=== PATIENT | male | born 1945 | race Caucasian/White ===

== ENCOUNTER → 2018-06-25 | Outpatient (CLI) | payer MEDICARE, BC ==
[~2018-06-25] MED LIST: ALEVE220 MG PO; AMOX500 PO; ANTI-FUNGAL CR113 GM TOP; ASPI81EC PO; Advair Hfa 230-12 GM; FISH1000 PO; FLUT.05NI; GLUCHON PO; LISI5 PO; Levitra20 MG PO; MECL25 PO; MULVITMINF PO; NAPR220 PO; Sudogest60 MG PO
== END ==
LOC: LAB EV 12:58 → LAB SHORT 12:58
DX: L08.9 Local infection of the skin and subcutaneous tissue, unspecified (principal)
CPT/HCPCS: 87070; 87075; 87205

== ENCOUNTER → 2020-10-11 | Outpatient (CLI) | payer MEDICARE, BC ==
[~2020-10-11] MED LIST changes: -ASPI81EC PO; +Amiodarone HCl200 MG PO; +Aspirin EC81 MG PO; +ELIQUIS5 MG PO; +FURO20 PO; +IBUP800; +LANOXIN125 MCG PO; +Levitra20 MG; +METOPROLOL SUCC25 MG PO; +MULTI VITAMIN1 EACH PO; -MULVITMINF PO; +OMEGA-3 FISH O1 EAC6 PO; +PRINIVIL10 MG PO; +PULMICORT0.5 MG/21 INH; +ROSU5 PO
[2020-10-11 15:58] LABS: BASOPHILS ABSOLUTE AUTO 0.05 K/mm3 (0.00-0.23); BASOPHILS PERCENT AUTO 1 % (0-2); EOSINOPHILS PERCENT AUTO 5 % (0-6); Hematocrit 42.2 % (37.0-53.0); Hemoglobin 13.4 g/dL (13.5-17.5); IMMATURE GRAN ABSOLUTE AUTO 0.02 K/mm3 (0.00-0.10); IMMATURE GRAN PERCENT AUTO 0 % (0-1); LYMPHOCYTES ABSOLUTE AUTO 1.63 K/mm3 (0.84-5.20); LYMPHOCYTES PERCENT AUTO 25 % (21-46); MONOCYTES ABSOLUTE AUTO 0.42 K/mm3 (0.16-1.47); MONOCYTES PERCENT AUTO 6 % (4-13); Mean Corpuscular HGB 28.2 pg (26.0-34.0); Mean Corpuscular HGB Conc 31.8 g/dL (31.5-36.5); Mean Corpuscular Volume 89 fL (80-100); Mean Platelet Volume 10.7 fL (9.1-12.4); NEUTROPHILS ABSOLUTE AUTO 4.24 K/mm3 (1.96-9.15); NEUTROPHILS PERCENT AUTO 64 % (41-73); Platelet Count 268 K/mm3 (150-400); RDW Coefficient Variation 16.4 % (11.7-14.2); RDW Standard Deviation 53.6 fL (35.1-46.3); Red Blood Cell Count 4.75 M/mm3 (4.30-5.90); White Blood Cell Count 6.66 K/mm3 (4.00-11.30)
[2020-10-11 16:52] LABS: Alanine Aminotransfer (ALT/SGP 35 U/L (12-78); Albumin, Blood 3.8 g/dL (3.4-5.0); Albumin/Globulin Ratio 1.1 (0.8-1.8); Alk Phos 83 U/L (50-136); Anion Gap 9 mmol/L (6-16); Aspartate Aminotrans (AST/SGOT 23 U/L (12-37); Bilirubin, Total 0.5 mg/dL (0.1-1.0); Blood Urea Nitrogen 23 mg/dL (8-24); Bun/Creatinine Ratio 26.8 (12.0-20.0); CHOL/HDL RATIO 2.5; CO2, Blood 22 mmol/L (21-32); Calcium, Blood 8.8 mg/dL (8.5-10.1); Chloride, Blood 109 mmol/L (98-108); Cholesterol 138 mg/dL (50-200); Creatinine, Blood 0.86 mg/dL (0.60-1.20); Globulin, Blood 3.4 g/dL (2.2-4.0); Glomerular Filtration Rate >60 (60-); Glucose, Blood 113 mg/dL (70-99); HDL Cholesterol 55 mg/dL (>39); LDL/HDL RATIO 1.2; Low Density Lipoprotein Chol 66 mg/dL (0-110); Potassium, Blood 4.3 mmol/L (3.5-5.5); Sodium, Blood 140 mmol/L (136-145); Total Protein, Blood 7.2 g/dL (6.4-8.2); Triglycerides 86 mg/dL (30-160); Very Low Density Lipoprot Chol 17 mg/dL (6-32)
== END | disposition home or self-care (01) ==
LOC: LAB SHORT 14:11
PROVIDERS: Family Medicine
DX: Z12.5 Encounter for screening for malignant neoplasm of prostate (principal); I10 Essential (primary) hypertension; E78.2 Mixed hyperlipidemia
CPT/HCPCS: 80053; 80061; 85025; G0103

== ENCOUNTER 2020-12-04 06:19 | Day surgery (SDC) | payer MEDICARE, BC ==
[~2020-12-04] VITALS: Ht 190.5 cm; Wt 146.0 kg
[~2020-12-04 06:19] MED LIST changes: -FURO20 PO
[2020-12-04] MEDS ORDERED: FURO20 PO (07:08)
--- NOTE | 2020-12-04 10:44 | NUR ---
12/04/20 1044 Sonia Brown THE PT IS RESTING COMFORABLY IN SDU, HIS VVS, HE IS EATING AND DRINKING FLUIDS. HE IS READY TO GO OVER DISCHARGE INSTRUCTIONS AND HIS HAS BEEN CALLED FOR HEEL SHAPER.
== END 2020-12-04 11:02 | disposition home or self-care (01) ==
LOC: ORSCSDS 06:19
PROVIDERS: Otolaryngology
PROC: 8E09XBZ Computer Assisted Procedure of Head and Neck Region (ICD-10-PCS; principal; 2020-12-04 07:30)
PROC: 09TV4ZZ Resection of Left Ethmoid Sinus, Percutaneous Endoscopic Approach (ICD-10-PCS; principal; 2020-12-04 07:30)
PROC: 09TU4ZZ Resection of Right Ethmoid Sinus, Percutaneous Endoscopic Approach (ICD-10-PCS; principal; 2020-12-04 07:30)
DX: J32.4 Chronic pansinusitis (principal); I10 Essential (primary) hypertension; I25.10 Atherosclerotic heart disease of native coronary artery without angina pectoris; Z87.891 Personal history of nicotine dependence; E66.01 Morbid (severe) obesity due to excess calories; Z68.41 Body mass index [BMI] 40.0-44.9, adult; Z79.01 Long term (current) use of anticoagulants; Z79.899 Other long term (current) drug therapy; Z79.82 Long term (current) use of aspirin
CPT/HCPCS: C2625; J0171; J0330; J1100; J2250; J2405; J2704; J3010; J7120

== ENCOUNTER 2021-11-12 11:32 | Emergency (ER) | payer MEDICARE, BC ==
[~2021-11-12] VITALS: Ht 190.5 cm; Wt 140.6 kg
[~2021-11-12 11:32] MED LIST changes: +FURO20 PO
[2021-11-12 12:57] LABS: BASOPHILS ABSOLUTE AUTO 0.03 K/mm3 (0.00-0.23); BASOPHILS PERCENT AUTO 0 % (0-2); EOSINOPHILS ABSOLUTE AUTO 0.23 K/mm3 (0.00-0.68); EOSINOPHILS PERCENT AUTO 3 % (0-6); Hematocrit 40.7 % (37.0-53.0); Hemoglobin 13.5 g/dL (13.5-17.5); IMMATURE GRAN ABSOLUTE AUTO 0.03 K/mm3 (0.00-0.10); IMMATURE GRAN PERCENT AUTO 0 % (0-1); LYMPHOCYTES ABSOLUTE AUTO 0.91 K/mm3 (0.84-5.20); LYMPHOCYTES PERCENT AUTO 14 % (21-46); MONOCYTES ABSOLUTE AUTO 0.43 K/mm3 (0.16-1.47); MONOCYTES PERCENT AUTO 6 % (4-13); Mean Corpuscular HGB 30.6 pg (26.0-34.0); Mean Corpuscular HGB Conc 33.2 g/dL (31.5-36.5); Mean Corpuscular Volume 92 fL (80-100); Mean Platelet Volume 9.4 fL (9.1-12.4); NEUTROPHILS ABSOLUTE AUTO 5.05 K/mm3 (1.96-9.15); NEUTROPHILS PERCENT AUTO 76 % (41-73); Platelet Count 253 K/mm3 (150-400); RDW Coefficient Variation 13.5 % (11.7-14.2); RDW Standard Deviation 46.1 fL (35.1-46.3); Red Blood Cell Count 4.41 M/mm3 (4.30-5.90); White Blood Cell Count 6.68 K/mm3 (4.00-11.30)
[2021-11-12 13:25] LABS: Alanine Aminotransfer (ALT/SGP 103 U/L (12-78); Albumin/Globulin Ratio 1.1 (0.8-1.8); Alk Phos 97 U/L (50-136); Anion Gap 6 mmol/L (6-16); Aspartate Aminotrans (AST/SGOT 210 U/L (12-37); Bilirubin, Total 0.8 mg/dL (0.1-1.0); Blood Urea Nitrogen 22 mg/dL (8-24); Bun/Creatinine Ratio 24.8 (12.0-20.0); CO2, Blood 27 mmol/L (21-32); Calcium, Blood 9.2 mg/dL (8.5-10.1); Chloride, Blood 104 mmol/L (98-108); Creatinine, Blood 0.89 mg/dL (0.60-1.20); Globulin, Blood 3.5 g/dL (2.2-4.0); Glomerular Filtration Rate >60 (60-); Glucose, Blood 160 mg/dL (70-99); Potassium, Blood 4.2 mmol/L (3.5-5.5); Sodium, Blood 137 mmol/L (136-145); Total Protein, Blood 7.5 g/dL (6.4-8.2)
[2021-11-12 13:33] LABS: Source, Urine Clean Catch
[2021-11-12 13:47] LABS: Bilirubin, Urine Neg (Neg); Blood, Urine Neg (Neg); Glucose Qualitative, Urine Neg (Neg); Ketones, Urine Neg (Neg); Leukocyte Esterase, Urine Neg (Neg); Nitrite, Urine Neg (Neg); Protein, Urine Neg (Neg); Urobilinogen, Urine NORM (Normal)
[2021-11-12 13:48] LABS: Appearance, Urine Clear (Clear); Color, Urine Pale Yellow (P-Yellow)
== END 2021-11-12 15:41 | disposition left against medical advice (07) ==
LOC: ER 11:32
PROVIDERS: Physician Assistant
DX: R10.10 Upper abdominal pain, unspecified (principal); Z53.21 Procedure and treatment not carried out due to patient leaving prior to being seen by health care provider
CPT/HCPCS: 76700; 76857; 80053; 81003; 83690; 85025

== ENCOUNTER 2023-05-28 07:44 | Day surgery (SDC) | payer MEDICARE, BC ==
[~2023-05-28] VITALS: Ht 190.5 cm; Wt 132.6 kg
--- NOTE | 2023-05-28 08:45 | NUR ---
05/28/23 0845 Dorie Powell MA CHARTING UNDER MY LOGIN SHE DOES NOT HAVE HER OWN [employer] LOGIN YET.
[2023-05-28] MEDS ORDERED: ZYRTEC10 M1 (08:51)
[2023-05-28] MEDS ORDERED: ASCO500 (08:52)
[2023-05-28] MEDS ORDERED: GLUC500 (08:52)
[2023-05-28] MEDS ORDERED: MECL25 (08:52)
[2023-05-28] MEDS ORDERED: ALEVE220 MG (08:52)
[2023-05-28] MEDS ORDERED: CHONDROITIN SU100 G1 (08:52)
[2023-05-28] MEDS ORDERED: CARV3.125 (08:53)
[2023-05-28] MEDS ORDERED: DERMACINRX FOL1 EAC2 (08:53)
[2023-05-28] MEDS ORDERED: LEVITRA (08:54)
[2023-05-28] MEDS ORDERED: BEE POLLEN (08:54)
[2023-05-28 10:54] VITALS: BP 124/61
== END 2023-05-28 10:10 | disposition home or self-care (01) ==
LOC: ORSCSDS 07:44 → ORD 09:00 → ORSCSDS 09:00
PROVIDERS: Internal Medicine Gastroenterology
PROC: 0DJD8ZZ Inspection of Lower Intestinal Tract, Via Natural or Artificial Opening Endoscopic (ICD-10-PCS; principal; 2023-05-28 09:00)
DX: Z12.11 Encounter for screening for malignant neoplasm of colon (principal); I48.0 Paroxysmal atrial fibrillation; Z85.46 Personal history of malignant neoplasm of prostate; Z95.1 Presence of aortocoronary bypass graft; I25.10 Atherosclerotic heart disease of native coronary artery without angina pectoris; Z79.82 Long term (current) use of aspirin; Z79.01 Long term (current) use of anticoagulants; Z79.899 Other long term (current) drug therapy
CPT/HCPCS: 82947; J2704; J7120

== ENCOUNTER 2024-08-11 10:49 | Inpatient (IN) | payer MEDICARE, BC ==
[~2024-08-11] VITALS: Ht 188 cm; Wt 135.8 kg
[~2024-08-11 10:49] MED LIST changes: +ALEVE220 MG; +ASCO500 PO; +BEE POLLEN; +CARV3.125 PO; +CHONDROITIN SU100 G1; +DERMACINRX FOL1 EAC2; +GLUC500 PO; +LEVITRA; +Lisinopril10 MG PO; -PRINIVIL10 MG PO; -ROSU5 PO; +ROSUVASTATIN CA10 MG PO; +ZYRTEC10 M1 PO
[2024-08-11] MEDS ORDERED: GLUCHON PO (11:24)
[2024-08-11] MEDS ORDERED: FERROUS SULFAT324 MG PO (11:26)
[2024-08-11 11:27] LABS: BASOPHILS ABSOLUTE AUTO 0.05 K/mm3 (0.00-0.23); BASOPHILS PERCENT AUTO 1 % (0-2); EOSINOPHILS ABSOLUTE AUTO 0.24 K/mm3 (0.00-0.68); EOSINOPHILS PERCENT AUTO 3 % (0-6); Hematocrit 43.3 % (37.0-53.0); Hemoglobin 14.5 g/dL (13.5-17.5); IMMATURE GRAN ABSOLUTE AUTO 0.02 K/mm3 (0.00-0.10); IMMATURE GRAN PERCENT AUTO 0 % (0-1); LYMPHOCYTES ABSOLUTE AUTO 1.45 K/mm3 (0.84-5.20); LYMPHOCYTES PERCENT AUTO 18 % (21-46); MONOCYTES ABSOLUTE AUTO 0.55 K/mm3 (0.16-1.47); MONOCYTES PERCENT AUTO 7 % (4-13); Mean Corpuscular HGB 30.5 pg (26.0-34.0); Mean Corpuscular HGB Conc 33.5 g/dL (31.5-36.5); Mean Corpuscular Volume 91 fL (80-100); Mean Platelet Volume 9.7 fL (9.1-12.4); NEUTROPHILS ABSOLUTE AUTO 5.57 K/mm3 (1.96-9.15); NEUTROPHILS PERCENT AUTO 71 % (41-73); Platelet Count 236 K/mm3 (150-400); RDW Coefficient Variation 14.6 % (11.7-14.2); RDW Standard Deviation 49.1 fL (35.1-46.3); Red Blood Cell Count 4.75 M/mm3 (4.30-5.90); White Blood Cell Count 7.88 K/mm3 (4.00-11.30)
[2024-08-11] MEDS ORDERED: VITAMIN D325 MC3 PO (11:27)
[2024-08-11] MEDS ORDERED: Apple Cider Vi300 MG PO (11:28)
[2024-08-11 11:44] LABS: Albumin/Globulin Ratio 1.1 (0.8-1.8); Bilirubin, Total 0.5 mg/dL (0.1-1.0); Bun/Creatinine Ratio 27.1 (12.0-20.0); Calcium, Blood 9.3 mg/dL (8.5-10.1); Creatinine, Blood 0.81 mg/dL (0.60-1.20); Globulin, Blood 3.6 g/dL (2.2-4.0); Phosphorus, Blood 3.2 mg/dL (2.5-4.9); Potassium, Blood 4.5 mmol/L (3.5-5.5); Total Protein, Blood 7.6 g/dL (6.4-8.2)
[2024-08-11] MEDS ORDERED: Diltiazem HCl 5 MG / ML 5ML Vial IV ONE (12:15)
[2024-08-11 13:12] LABS: Anti-Xa UFH, PHA Monitoring <0.10 IU/mL; International Normalized Ratio 1.07; Prothrombin Time Results 11.4 Sec (9.7-11.5)
[2024-08-11] MEDS ORDERED: Heparin Sodium,Porcine/0.5 NS 500 ML IV SCH (13:55)
[2024-08-11] MEDS ORDERED: Heparin Sodium 5000 Units/ML 1ML MDV IV ONE (13:55)
[2024-08-11] MEDS ORDERED: FLU VACC TS2024-25(6MOS UP)/PF 45 MCG/0.5 ML SYRINGE IM PRN (14:10)
[2024-08-11] MEDS ORDERED: Aspirin 325 MG Tab PO ONE (14:10)
[2024-08-11 14:39] LABS: CHOL/HDL RATIO 1.9; Cholesterol 143 mg/dL (50-200); HDL Cholesterol 76 mg/dL (>39); LDL/HDL RATIO 0.7; Low Density Lipoprotein Chol 50 mg/dL (0-110); Triglycerides 84 mg/dL (30-160); Very Low Density Lipoprot Chol 16 mg/dL (6-32)
[2024-08-11 15:00] VITALS: BP 134/57
[2024-08-11 16:00] VITALS: BP 105/86
[2024-08-11] MEDS ORDERED: Meclizine HCl 25 MG Tab PO PRN (16:00)
[2024-08-11] MEDS ORDERED: Metoprolol Tartrate 1 MG/ML 5 ML VIAL IV PRN (16:35)
--- NOTE | 2024-08-11 16:36 | NUR ---
REPORT RECIEVED FROM ED NURSE AT 3451.
[2024-08-11 17:03] VITALS: BP 127/37
--- NOTE | 2024-08-11 18:02 | NUR ---
ARRIVAL TO UNIT 1645 PT ARRIVED TO PCU AT 1645 VIA RLANEXA AND ON RA. PT A/OX4 AT TIME OF ARRIVAL. PT HR ALFLUTTER IN THE 90-100'S, TACHS UP TO 130-140 WITH EXERTION. OTHER VSS WITH O2 SATS IN THE 90'S ON RA. PT ABLE TO TRAN[place] [facility] [place] [facility] ON HIS OWN, TOLERATED WELL. HEP GTT RUNNING PER ORDER. PT ORIENTED TO ROOM AND CALL LIGHT. PT INFORMED OF NPO AT MIDNIGHT ORDER, PT VERBALIZED UNDERSTANDING. PT ABLE TO PROVIDE HEALTH HISTORY. PT GLASSES THOUGHT TO BE LEFT IN ED, ED RN LOOKED FOR GLASSES, NONE FOUND. PT CONTACTED , INFORMED PT THAT SHE TOOK HIS GLASSES HOME. PT REQUESTED TO BRING GLASSES BACK.
[2024-08-11 19:47] VITALS: BP 135/83
[2024-08-11] MEDS ORDERED: Metoprolol Tartrate 25 MG Tab PO SCH (21:00)
[2024-08-11] MEDS ORDERED: Dose Adjust by Pharmacy XX STA (21:09)
[2024-08-11 23:13] VITALS: BP 124/77
--- NOTE | 2024-08-12 00:38 | NUR ---
0000 UPDATE. PT AOX4, PLEASANT, COOPERATIVE, ABLE TO MAKE NEEDS KNOWN. RESTING COMFORTABLY AT THIS TIME. CONTINUES TO DENY ANY PAIN. NPO SINCE 0000, PT EDUCATED ON INDICATION, AGREEABLE. INDEPENDENT IN ROOM, CALLS APPROPRIATELY FOR ASSISTANCE. VITALS STABLE. CONTINUES TO RUN AFLUTTER ON TELE WITH VARIABLE HR ANYWHERE BETWEEN 70s-130s, NOT HOLDING SUSTAINED TACHYCARDIA AT THIS TIME. BED LOCKED IN LOWEST POSITION. CALL LIGHT LEFT WITHIN REACH. CONTINUING TO MONITOR.
[2024-08-12 02:58] LABS: BASOPHILS ABSOLUTE AUTO 0.04 K/mm3 (0.00-0.23); BASOPHILS PERCENT AUTO 1 % (0-2); EOSINOPHILS ABSOLUTE AUTO 0.29 K/mm3 (0.00-0.68); EOSINOPHILS PERCENT AUTO 4 % (0-6); Hematocrit 39.4 % (37.0-53.0); Hemoglobin 13.4 g/dL (13.5-17.5); IMMATURE GRAN ABSOLUTE AUTO 0.02 K/mm3 (0.00-0.10); IMMATURE GRAN PERCENT AUTO 0 % (0-1); LYMPHOCYTES ABSOLUTE AUTO 1.52 K/mm3 (0.84-5.20); LYMPHOCYTES PERCENT AUTO 23 % (21-46); MONOCYTES ABSOLUTE AUTO 0.49 K/mm3 (0.16-1.47); MONOCYTES PERCENT AUTO 7 % (4-13); Mean Corpuscular HGB 30.9 pg (26.0-34.0); Mean Corpuscular Volume 91 fL (80-100); Mean Platelet Volume 9.8 fL (9.1-12.4); NEUTROPHILS ABSOLUTE AUTO 4.37 K/mm3 (1.96-9.15); NEUTROPHILS PERCENT AUTO 65 % (41-73); Platelet Count 198 K/mm3 (150-400); RDW Coefficient Variation 14.5 % (11.7-14.2); Red Blood Cell Count 4.33 M/mm3 (4.30-5.90); White Blood Cell Count 6.73 K/mm3 (4.00-11.30)
[2024-08-12 03:13] LABS: Bun/Creatinine Ratio 25.7 (12.0-20.0); Calcium, Blood 8.5 mg/dL (8.5-10.1); Creatinine, Blood 0.86 mg/dL (0.60-1.20)
[2024-08-12] MEDS ORDERED: Clarify Drug Order XX ONE (03:20)
[2024-08-12 03:31] VITALS: BP 143/100
--- NOTE | 2024-08-12 04:25 | NUR ---
SHIFT SUMMARY. NO ACUTE CHANGES THROUGHOUT SHIFT. SEE PREVIOUS NOTE FOR EXPANDED DETAILS. HR CONTINUES TO BE SOMEWHAT VARIABLE. PT HAS BEEN NPO SINCE MIDNIGHT. VITALS REMAIN STABLE. HAS RESTED COMFORTABLY THROUGHOUT SHIFT. BED LOCKED IN LOWEST POSITION. CALL LIGHT LEFT WITHIN REACH. CONTINUING TO MONITOR.
[2024-08-12 07:40] VITALS: BP 125/77
[2024-08-12] MEDS ORDERED: Aspirin 81 MG TabEC PO SCH (09:00)
[2024-08-12] MEDS ORDERED: Misc. Tablet PO SCH (09:00)
[2024-08-12] MEDS ORDERED: Ferrous Sulfate 325 MG Tab PO SCH (09:00)
[2024-08-12] MEDS ORDERED: Loratadine 10 MG Tab PO SCH (09:00)
[2024-08-12] MEDS ORDERED: Cholecalciferol 1000 Unit Tablet (=25MCG) PO SCH (09:00)
[2024-08-12] MEDS ORDERED: Lisinopril 10 MG Tab PO SCH (09:00)
[2024-08-12] MEDS ORDERED: Rosuvastatin Calcium 10 MG Tab PO SCH (09:00)
[2024-08-12] MEDS ORDERED: Ascorbic Acid 500 MG Tab PO SCH (09:00)
[2024-08-12] MEDS ORDERED: Multivitamins 1 Tab PO SCH (09:00)
[2024-08-12 11:16] VITALS: BP 104/64
--- NOTE | 2024-08-12 12:53 | NUR ---
UPDATE SPOKE WITH CARDIOLOGY ABOUT CARDIOVERSION. HC NOT STAFFED FOR PROCEDURE. PCU COORDINATOR CONTACTED SYSTEMS APPLICATIONS PROGRAMMING LEAD FOR RECOVERY PERIOD IF PROCEDURE IS ABLE TO BE DONE. CONSULTING SERVICES MANAGER ARRANGING ANETHESIOLOGIST. PT AND PT UPDATED ON CURRENT PLAN. PT VERBALIZED UNDERSTANDING. PT CONTINUES TO BE NPO AT THIS TIME. NO ACUTE CHANGES TO PT AT THIS TIME. HR REMAINS AFLUTTER 110-130'S CONSULTING SERVICES MANAGER AWARE.
[2024-08-12] MEDS ORDERED: propofoL 50 ML IV ONE (13:23)
--- NOTE | 2024-08-12 13:31 | NUR ---
REPORT GIVEN TO ICU NURSE SAMY AT 1325 FOR PT TO TRANSFER TO ICU 5 FOR CARDIOVERSION.
--- NOTE | 2024-08-12 13:57 | NUR ---
PT ARRIVED TO ICU 5 WITH AND FOR ELECTIVE CARDIOVERSION. PT PLACED ON MONITORS, PLACED DEFIBRILLATOR PADS, SET THE DEFIB TO SYNC @ 200J. DR. MORALES ADMINISTERING PROPOFOL. DONTA AND KIM RNS IN THE ROOM. PT SHOCKED AT 1401, HEART RATE RETURNS TO SINUS IN THE 50S. SOME ECTOPY NOTED. HEART RATE IN THE 70S. OUT TO SPEAK WITH SPOUSE. PT STARTING TO TALK TO STAFF. 70MG PROPOFOL GIVEN. PROCEDURE COMPLETE. BP 115/57 HR 70, 18, 96% 1415: 129/68 70, 16, 98% 1420:146/75 70 15 98%. CARE TURNED OVER TO JAMES Flanagan RN
--- NOTE | 2024-08-12 15:09 | NUR ---
PT RETURNED FROM ICU 5 BACK TO PCU 13 AT 1445 AFTER SUCCESSFUL CARDIOVERSION. PT SPRING ARRIVED TO ROOM SHORTLY AFTER. PT INFORMED THIS RN THAT HE WAS TO STAY OVERNIGHT FOR OBSERVATIONAND TO DISCHARGE IN THE MORNING. PT CURRENTLY IN SR AT 77 WHILE SITTING UP IN BED EATING LUNCH.
[2024-08-12 17:08] VITALS: BP 117/60
--- NOTE | 2024-08-12 17:56 | NUR ---
SHIFT SUMMARY PT A/OX4 AND COOPERATIVE OF CARE. PT ABLE TO EXPRESSNEEDS AND CALLS APPROPIATE. PT WAS AFLUTTER AT BEGINNING OF SHIFT, CARDIOVERTED TO SR. OTHER VSS THROUGHOUT SHIFT WITH O2 SATS IN THE 90'S ON RA. NO REPORT OF CHEST PAIN/PRESSURE THROUGHOUT SHIFT. NO REPORT OF SOB/DYSPNEA THROUGHOUT SHIFT. PT INDEPENDENT IN ROOM. AT BEDSIDE FOR MOST OF SHIFT AND UPDATED ABOUT CARDIOVERSION. PT CURRENTLY SR IN THE 70'S.
[2024-08-12 20:52] VITALS: BP 130/60
[2024-08-12] MEDS ORDERED: Apixaban 5 MG Tab PO SCH (23:00)
[2024-08-13 04:18] LABS: BASOPHILS ABSOLUTE AUTO 0.05 K/mm3 (0.00-0.23); BASOPHILS PERCENT AUTO 1 % (0-2); EOSINOPHILS ABSOLUTE AUTO 0.22 K/mm3 (0.00-0.68); EOSINOPHILS PERCENT AUTO 4 % (0-6); Hemoglobin 12.5 g/dL (13.5-17.5); IMMATURE GRAN ABSOLUTE AUTO 0.01 K/mm3 (0.00-0.10); IMMATURE GRAN PERCENT AUTO 0 % (0-1); LYMPHOCYTES ABSOLUTE AUTO 1.46 K/mm3 (0.84-5.20); LYMPHOCYTES PERCENT AUTO 24 % (21-46); MONOCYTES ABSOLUTE AUTO 0.48 K/mm3 (0.16-1.47); MONOCYTES PERCENT AUTO 8 % (4-13); Mean Corpuscular HGB 31.2 pg (26.0-34.0); Mean Corpuscular HGB Conc 33.8 g/dL (31.5-36.5); Mean Corpuscular Volume 92 fL (80-100); Mean Platelet Volume 9.7 fL (9.1-12.4); NEUTROPHILS ABSOLUTE AUTO 3.76 K/mm3 (1.96-9.15); NEUTROPHILS PERCENT AUTO 63 % (41-73); Platelet Count 201 K/mm3 (150-400); RDW Coefficient Variation 14.5 % (11.7-14.2); Red Blood Cell Count 4.01 M/mm3 (4.30-5.90); White Blood Cell Count 5.98 K/mm3 (4.00-11.30)
[2024-08-13 04:46] LABS: Bun/Creatinine Ratio 24.8 (12.0-20.0); Creatinine, Blood 0.97 mg/dL (0.60-1.20); Potassium, Blood 4.2 mmol/L (3.5-5.5)
--- NOTE | 2024-08-13 06:52 | NUR ---
EOS: HEPARIN GTT STOPPED AT 2300 08-12-24 AND ELIQUIS STARTED. VSS, DR. MATHEWS SAW PT AND RESTARTED HOME MEDS TO START TODAY, ALSO SAID VERY PROBABLE THAT HE WOULD BE DISCHARGED SOMETIME TODAY. PT REMAINS INDEPENDENT IN ROOM.
[2024-08-13] MEDS ORDERED: Carvedilol 6.25 MG Tab PO SCH (08:00)
[2024-08-13 08:14] VITALS: BP 125/55
[2024-08-13] MEDS ORDERED: ELIQUIS5 M2 PO (10:40)
--- NOTE | 2024-08-13 11:12 | NUR ---
ASSUMED CARE OF PT AT 0700 THIS AM. NO ACUTE EVENTS OVERNIGHT. PT DENIES CHEST PAIN OR PRESSURE THIS AM AND REMAINS IN SR. SEE DOCUMENTED VS AND ASSESSMENT FOR DETAILS. PT DISCHARGED HOME IN THE CARE OF HIS . ALL BELONGINGS SENT HOME WITH PT. REVIEWED DISCHARGE TEACHING INCLUDING NEW MEDICATIONS, MEDICATION LIST, MEDICATIONS TO STOP, FOLLOW UP APPOINTMENTS AND EDUCATION MATERIALS. PT/ STATE THEY HAVE NO FURTHER QUESTIONS OR CONCERNS, VERBALIZE UNDERSTANDING OF INSTRUCTIONS. PT/ UNDERSTAND WHERE TO GEMOLOGIST PRESCRIPTIONS. NO FURTHER DISCHARGE NEEDS IDENTIFIED.
== END 2024-08-13 11:06 | disposition home or self-care (01) | DRG 282 ==
LOC: ER 10:49 → PCU 14:05
PROVIDERS: Emergency Medicine; ADMIT Family Medicine
PROC: 5A2204Z Restoration of Cardiac Rhythm, Single (ICD-10-PCS; principal; 2024-08-12)
DX: I48.92 Unspecified atrial flutter (principal); I21.4 Non-ST elevation (NSTEMI) myocardial infarction; I35.0 Nonrheumatic aortic (valve) stenosis; I25.10 Atherosclerotic heart disease of native coronary artery without angina pectoris; I10 Essential (primary) hypertension; F10.90 Alcohol use, unspecified, uncomplicated; I48.0 Paroxysmal atrial fibrillation; E66.9 Obesity, unspecified; Z88.5 Allergy status to narcotic agent; Z95.1 Presence of aortocoronary bypass graft; I25.2 Old myocardial infarction; Z98.890 Other specified postprocedural states; Z87.891 Personal history of nicotine dependence; Z79.82 Long term (current) use of aspirin; Z79.899 Other long term (current) drug therapy
CPT/HCPCS: 36415; 71045; 80048; 80053; 80061; 83735; 84100; 84443; 84484; 85025; 85520; 85610; 93005; 93010; 93306; 96374; 99285-25; A9270; J1644; J2704